=== PATIENT | female | born 1980 | race Caucasian/White ===

== ENCOUNTER 2018-11-14 18:03 | Emergency (ER) | payer OTHER ==
[2018-11-14] MEDS ORDERED: ONDANSETRON HCL INJ/PF 4 MG/2 ML SDV IV ONE (21:15)
[2018-11-14] MEDS ORDERED: NORMAL SALINE 500 ML IV ONE (21:15)
[2018-11-14] MEDS ORDERED: KETOROLAC TROMETHAMINE INJ/PF 30 MG/1 ML SDV IV ONE ×2 (21:15→23:17)
--- NOTE | 2018-11-14 21:18 | ER Document Report ---
ED Medical Screen (RME) - General Chief Complaint: Headache Stated Complaint: HEADACHE Time Seen by Provider: 11/14/18 21:14 Primary Care Provider: MIKE COFFEY DO [Primary Care Provider] - Follow up as needed Notes: 37-year-old female with chief complaint of headache for the past 3 days. Reports throbbing migraine on the right side of her head. Long history of migraines, tried to treat at home using diclofenac, Phenergan, naproxen, Benadryl over the past couple of days. Denies head injury or fever, reports this is consistent with typical migraine except it won't go away. TRAVEL OUTSIDE OF THE [place] IN LAST 30 DAYS: No - Related Data Allergies/Adverse Reactions: prochlorperazine edisylate [From Compazine] Allergy (Severe, Verified 11/14/18 18:04) Anaphylaxis prochlorperazine maleate [From Compazine] Allergy (Severe, Verified 11/14/18 18:04) Anaphylaxis metoclopramide HCl [From Reglan] Allergy (Verified 11/14/18 18:04) rizatriptan benzoate [From Maxalt] Allergy (Verified 11/14/18 18:04) sumatriptan [From Imitrex] Allergy (Verified 11/14/18 18:04) sumatriptan succinate [From Imitrex] Allergy (Verified 11/14/18 18:04) eletriptan HBr [From Relpax] Adverse Reaction (Verified 11/14/18 18:04) triptins Allergy (Severe, Uncoded 11/14/18 18:04) Anaphylaxis Past Medical History - Social History Family history: DM, Hypertension, Malignancy Neurological Medical History: Reports: Hx Migraine, Hx Seizures Psychiatric Medical History: Reports: Hx Depression Past Surgical History: Reports: Hx Gynecologic Surgery - ablation - Immunizations Immunizations up to date: Yes Hx Diphtheria, Pertussis, Tetanus Vaccination: Yes Physical Exam - Vital signs Vitals: Temp Pulse Resp BP Pulse Ox 98.4 F 91 16 103/63 96 11/14/18 18:07 11/14/18 18:07 11/14/18 18:07 11/14/18 18:07 11/14/18 18:07 - Neurological Orientation: AAOx4 Ana Coma Scale Eye Opening: Spontaneous Witt Coma Scale Verbal: Oriented Ana Coma Scale Motor: Obeys Commands Ana Coma Scale Total: 15 Speech: Normal Course - Vital Signs Vital signs: Temp Pulse Resp BP Pulse Ox 98.4 F 91 16 103/63 96 11/14/18 18:07 11/14/18 18:07 11/14/18 18:07 11/14/18 18:07 11/14/18 18:07 Doctor's Discharge - Discharge Referrals: MIKE COFFEY DO [Primary Care Provider] - Follow up as needed
[2018-11-14] MEDS ORDERED: NORMAL SALINE 1000 ML 1,000 ML IV ONE (23:18)
[2018-11-14] MEDS ORDERED: DIHYDROERGOTAMINE MESYLATE IM ONE (23:21)
[2018-11-15] MEDS ORDERED: OXYCODONE-ACETAMINOPHEN 5-325 MG TABLET PO ONE (01:29)
--- NOTE | 2018-11-15 02:03 | ER Document Report ---
ED General - General Chief Complaint: Headache Stated Complaint: HEADACHE Time Seen by Provider: 11/14/18 21:14 Primary Care Provider: MIKE COFFEY DO [ASSOCIATE] - Follow up as needed TRAVEL OUTSIDE OF THE [place] IN LAST 30 DAYS: No - HPI Notes: Patient is a 38-year-old female with a history of migraine headaches who presents to the emergency department for evaluation of a migraine headache. It hurts over by her right religious. It is throbbing in nature. It is not the worst headache of her life, but she has not gotten any relief with her normal medications. It is worsened by bright light and loud noises. Nothing seems to improve it. She denies any visual changes. No difficulty seeing, speaking, swallowing. Moving arms and legs without difficulty. She states she receives Botox injections, actually received some today for her headache without significant relief. - Related Data Allergies/Adverse Reactions: prochlorperazine edisylate [From Compazine] Allergy (Severe, Verified 11/14/18 18:04) Anaphylaxis prochlorperazine maleate [From Compazine] Allergy (Severe, Verified 11/14/18 18:04) Anaphylaxis metoclopramide HCl [From Reglan] Allergy (Verified 11/14/18 18:04) rizatriptan benzoate [From Maxalt] Allergy (Verified 11/14/18 18:04) sumatriptan [From Imitrex] Allergy (Verified 11/14/18 18:04) sumatriptan succinate [From Imitrex] Allergy (Verified 11/14/18 18:04) eletriptan HBr [From Relpax] Adverse Reaction (Verified 11/14/18 18:04) triptins Allergy (Severe, Uncoded 11/14/18 18:04) Anaphylaxis Past Medical History - General Information source: Patient - Social History Smoking Status: Current Every Day Smoker Chew tobacco use (# tins/day): No Frequency of alcohol use: None Drug Abuse: None Family History: Reviewed & Not Pertinent Patient has suicidal ideation: No Patient has homicidal ideation: No Neurological Medical History: Reports: Hx Migraine, Hx Seizures Renal/ Medical History: Denies: Hx Peritoneal Dialysis Psychiatric Medical History: Reports: Hx Depression Past Surgical History: Reports: Hx Gynecologic Surgery - ablation - Immunizations Immunizations up to date: Yes Hx Diphtheria, Pertussis, Tetanus Vaccination: Yes Review of Systems - Review of Systems Constitutional: No symptoms reported EENT: No symptoms reported Cardiovascular: No symptoms reported Respiratory: No symptoms reported Gastrointestinal: No symptoms reported Genitourinary: No symptoms reported Musculoskeletal: No symptoms reported Skin: No symptoms reported Neurological/Psychological: No symptoms reported Physical Exam - Vital signs Vitals: Temp Pulse Resp BP Pulse Ox 98.4 F 91 16 103/63 96 11/14/18 18:07 11/14/18 18:07 11/14/18 18:07 11/14/18 18:07 11/14/18 18:07 - Notes Notes: Vital signs reviewed, please refer to chart. Head is normocephalic, atraumatic. Pupils equal round, reactive to light. Neck is supple without meningismus. Heart is regular rate and rhythm. Lungs are clear to auscultation bilaterally. Abdomen is soft, nontender, normoactive bowel sounds throughout. Extremities without cyanosis, clubbing. Posterior calves are nontender. Peripheral pulses are equal. Skin is warm and dry. Patient is awake, alert, oriented x3. Cranial nerves II - XII are grossly intact without focal neurological deficits. Strength is plus 5 out of 5 bilateral lower extremities. Sensation is intact. Reflexes symmetrical. Intact [id number], rapid alternating movements, [id number]. Course - Re-evaluation Re-evalutation: 11/15/18 02:00 Patient presents emergency department for evaluation of a migraine headache. She has no red flags for arachnoid hemorrhage, meningitis. This is all typical of her normal migraines. She was initially medicated through triage, did not have significant relief. She was further given medications by myself, stated she had some relief. At one point she told her nurse "just give me some pain medication so I can go home." She was medicated here with 1 Percocet. She already takes Topamax at home for her daily migraine prophylaxis. She is to follow-up with primary care, return to the ED with worsening or new concerning symptoms of any sort. - Vital Signs Vital signs: Temp Pulse Resp BP Pulse Ox 98.4 F 91 16 103/63 96 11/14/18 18:07 11/14/18 18:07 11/14/18 18:07 11/14/18 18:07 11/14/18 18:07 Discharge - Discharge Clinical Impression: Migraine headache without aura Qualifiers: Status migrainosus presence: without status migrainosus Intractability: not intractable Qualified Code(s): G43.009 - Migraine without aura, not intractable, without status migrainosus Condition: Stable Disposition: HOME, SELF-CARE Instructions: Headache ([facility]), Toradol Injection ([facility]) Additional Instructions: To your home medications as prescribed. Rest, stay well-hydrated. Follow-up with your doctor next week. Return to the emergency department with worsening or new concerning symptoms. Referrals: MIKE COFFEY DO [ASSOCIATE] - Follow up as needed
[2018-11-15 03:31] VITALS: BP 106/62
== END 2018-11-15 03:20 | disposition home or self-care (01) ==
LOC: ER 18:03
DX: G43.909 Migraine, unspecified, not intractable, without status migrainosus (principal); Z79.899 Other long term (current) drug therapy; F17.200 Nicotine dependence, unspecified, uncomplicated; Z87.892 Personal history of anaphylaxis; Z88.8 Allergy status to other drugs, medicaments and biological substances; Z88.6 Allergy status to analgesic agent
CPT/HCPCS: 96376; 99284; 96372; 96361; 96374; J1110; J1885; J2405; J7030; J7040

== ENCOUNTER 2019-01-23 10:58 | Emergency (ER) | payer OTHER ==
[2019-01-23] MEDS ORDERED: ONDANSETRON 4 MG TAB.RAPDIS PO ONE (11:21)
--- NOTE | 2019-01-23 11:23 | ER Document Report ---
ED Medical Screen (RME) - General Chief Complaint: Headache Stated Complaint: HEADACHE Time Seen by Provider: 01/23/19 11:21 Primary Care Provider: GURMEET COREA DO [Primary Care Provider] - Follow up as needed Mode of Arrival: Ambulatory Information source: Patient Notes: 38-year-old female presented to ED for complaint of migraine. She states she gets these migraines that she usually has to have Nubain Demerol or morphine to get rid of it. She went to the urgent care yesterday and they gave her Phenergan and Toradol and it did not help. She states she is allergic to Compazine and cannot use that cocktail. She is alert oriented respirations regular and unlabored speaking in full sentences she does walk with a even steady gait. Will give her some Phenergan until she is seen by her provider. I have greeted and performed a rapid initial assessment of this patient. A comprehensive ED assessment and evaluation of the patient, analysis of test res ults and completion of medical decision making process will be conducted by an additional ED providers. TRAVEL OUTSIDE OF THE [place] IN LAST 30 DAYS: No - Related Data Allergies/Adverse Reactions: prochlorperazine edisylate [From Compazine] Allergy (Severe, Verified 01/23/19 11:00) Anaphylaxis prochlorperazine maleate [From Compazine] Allergy (Severe, Verified 01/23/19 11:00) Anaphylaxis metoclopramide HCl [From Reglan] Allergy (Verified 01/23/19 11:00) rizatriptan benzoate [From Maxalt] Allergy (Verified 01/23/19 11:00) sumatriptan [From Imitrex] Allergy (Verified 01/23/19 11:00) sumatriptan succinate [From Imitrex] Allergy (Verified 01/23/19 11:00) eletriptan HBr [From Relpax] Adverse Reaction (Verified 01/23/19 11:00) triptins Allergy (Severe, Uncoded 01/23/19 11:00) Anaphylaxis Past Medical History - Social History Family history: DM, Hypertension, Malignancy Neurological Medical History: Reports: Hx Migraine, Hx Seizures Renal/ Medical History: Denies: Hx Peritoneal Dialysis Psychiatric Medical History: Reports: Hx Depression Past Surgical History: Reports: Hx Gynecologic Surgery - ablation - Immunizations Immunizations up to date: Yes Hx Diphtheria, Pertussis, Tetanus Vaccination: Yes Physical Exam - Vital signs Vitals: Temp Pulse Resp BP Pulse Ox 98.2 F 91 18 108/64 96 01/23/19 11:00 01/23/19 11:00 01/23/19 11:00 01/23/19 11:00 01/23/19 11:00 Course - Vital Signs Vital signs: Temp Pulse Resp BP Pulse Ox 98.2 F 91 18 108/64 96 01/23/19 11:00 01/23/19 11:00 01/23/19 11:00 01/23/19 11:00 01/23/19 11:00 Doctor's Discharge - Discharge Referrals: GURMEET COREA, [Primary Care Provider] - Follow up as needed
[2019-01-23] MEDS ORDERED: NALBUPHINE HCL INJ 10 MG/1 ML AMPULE INJ ONE (12:25)
[2019-01-23] MEDS ORDERED: PROMETHAZINE HCL INJ 25 MG/1 ML VIAL IV ONE (12:25)
[2019-01-23] MEDS ORDERED: NORMAL SALINE 1000 ML 1,000 ML IV ONE (12:26)
[2019-01-23] MEDS ORDERED: ONDANSETRON ODT 4 MG TAB (6 TAB/ER DISP) PO PRN (14:10)
[2019-01-23 14:14] VITALS: BP 104/64
--- NOTE | 2019-01-26 21:23 | ER Document Report ---
Entered by COLLINS ALVARADO SCRIBE 01/23/19 1227 Acting as scribe for:OJ COOPER DO ED Headache - General Chief Complaint: Headache Stated Complaint: HEADACHE Time Seen by Provider: 01/23/19 11:21 Primary Care Provider: GURMEET COREA DO [NO LOCAL MD] - Follow up in 3-5 days Mode of Arrival: Ambulatory Notes: 38 year old female that presents to the emergency department today with complaints of a migraine headache. Patient reports a history of chronic migraines and states that her headache today is identical to her usual migraine headaches. Patient denies fevers or weakness. TRAVEL OUTSIDE OF THE [place] IN LAST 30 DAYS: No - Related Data Allergies/Adverse Reactions: prochlorperazine edisylate [From Compazine] Allergy (Severe, Verified 01/23/19 11:00) Anaphylaxis prochlorperazine maleate [From Compazine] Allergy (Severe, Verified 01/23/19 11:00) Anaphylaxis metoclopramide HCl [From Reglan] Allergy (Verified 01/23/19 11:00) rizatriptan benzoate [From Maxalt] Allergy (Verified 01/23/19 11:00) sumatriptan [From Imitrex] Allergy (Verified 01/23/19 11:00) sumatriptan succinate [From Imitrex] Allergy (Verified 01/23/19 11:00) eletriptan HBr [From Relpax] Adverse Reaction (Verified 01/23/19 11:00) triptins Allergy (Severe, Uncoded 01/23/19 11:00) Anaphylaxis Past Medical History - General Information source: Patient - Social History Smoking Status: Unknown if Ever Smoked Frequency of alcohol use: None Drug Abuse: None Lives with: Family Family History: Reviewed & Not Pertinent Patient has suicidal ideation: No Patient has homicidal ideation: No Neurological Medical History: Reports: Hx Migraine, Hx Seizures Psychiatric Medical History: Reports: Hx Depression Past Surgical History: Reports: Hx Gynecologic Surgery - ablation - Immunizations Immunizations up to date: Yes Hx Diphtheria, Pertussis, Tetanus Vaccination: Yes Review of Systems - Review of Systems Constitutional: denies: Fever, Weakness EENT: No symptoms reported Cardiovascular: No symptoms reported Respiratory: No symptoms reported Gastrointestinal: No symptoms reported Genitourinary: No symptoms reported Female Genitourinary: No symptoms reported Musculoskeletal: No symptoms reported Skin: No symptoms reported Hematologic/Lymphatic: No symptoms reported Neurological/Psychological: See HPI, Headaches -: Yes All other systems reviewed and negative Physical Exam - Vital signs Vitals: Temp Pulse Resp BP Pulse Ox 98.2 F 91 18 108/64 96 01/23/19 11:00 01/23/19 11:00 01/23/19 11:00 01/23/19 11:00 01/23/19 11:00 Interpretation: Normal - General General appearance: Alert In distress: None - appears uncomfortable - HEENT Head: Normocephalic, Atraumatic Eyes: Normal Pupils: PERRL - Respiratory Respiratory status: No respiratory distress Chest status: Nontender Breath sounds: Normal Chest palpation: Normal - Cardiovascular Rhythm: Regular Heart sounds: Normal auscultation Murmur: No - Abdominal Inspection: Normal Distension: No distension Bowel sounds: Normal Tenderness: Nontender Organomegaly: No organomegaly - Back Back: Normal, Nontender - Extremities General upper extremity: Normal inspection, Nontender, Normal color, Normal ROM, Normal temperature General lower extremity: Normal inspection, Nontender, Normal color, Normal ROM, Normal temperature, Normal weight bearing. No: Brenden's sign - Neurological Neuro grossly intact: Yes Cognition: Normal Orientation: AAOx4 [place] Coma Scale Eye Opening: Spontaneous Ana Coma Scale Verbal: Oriented [place] Coma Scale Motor: Obeys Commands [place] Coma Scale Total: 15 Speech: Normal Motor strength normal: LUE, RUE, LLE, RLE Sensory: Normal - Psychological Associated symptoms: Normal affect, Normal mood - Skin Skin Temperature: Warm Skin Moisture: Dry Skin Color: Normal Course - Re-evaluation Re-evalutation: Patient is a 38-year-old female with a history of migraines who comes in complaining of a headache similar to her migraines in the past. Patient has no neurologic deficits. She has photophobia. No fever. Patient is nauseated but no other symptoms or concerns. Receive Zofran at triage which states helps the nausea but not her headache. Patient states that she has been given Nubain, morphine, and Dilaudid in the past for her headaches. She was given Phenergan as requested and Nubain here with significant improvement. She will be given a 3-day supply of Fioricet from the hospital pharmacy. No evidence for imaging at this time. No neurovascular deficits. Feels better would like to go home. Stable for discharge. It is recommended that she follow-up with a primary care doctor and probably neurologist regarding her chronic migraine headaches. - Vital Signs Vital signs: Temp Pulse Resp BP Pulse Ox 97.9 F 61 16 104/64 97 01/23/19 14:13 01/23/19 14:13 01/23/19 14:13 01/23/19 14:13 01/23/19 14:13 Discharge - Discharge Clinical Impression: Headache Qualifiers: Headache type: unspecified Headache chronicity pattern: acute headache Intractability: not intractable Qualified Code(s): R51 - Headache Condition: Stable Disposition: HOME, SELF-CARE Instructions: Migraine Headache ([facility]) Prescriptions: Butalb/Acetaminophen/Caffeine [Fioricet (50-325-40 mg) Tablet] 1 tab PO Q8HP PRN #9 tab PRN Reason: Referrals: GURMEET COREA DO [NO LOCAL MD] - Follow up in 3-5 days I personally performed the services described in the documentation, reviewed and edited the documentation which was dictated to the scribe in my presence, and it accurately records my words and actions.
== END 2019-01-23 15:00 | disposition home or self-care (01) ==
LOC: ER 10:58
DX: R51 Headache (principal); H53.149 Visual discomfort, unspecified; R11.0 Nausea
CPT/HCPCS: 99284; 96372; 96361; 96374; S0119; J2300; J2550; J7030

== ENCOUNTER 2019-01-25 12:30 | Emergency (ER) | payer OTHER ==
[2019-01-25] MEDS ORDERED: ONDANSETRON HCL INJ/PF 4 MG/2 ML SDV IV ONE ×2 (14:29→18:10)
--- NOTE | 2019-01-25 14:29 | ER Document Report ---
ED Medical Screen (RME) - General Chief Complaint: Headache Stated Complaint: HEADACHES Time Seen by Provider: 01/25/19 14:25 Primary Care Provider: IRAIDA AMIN PA [Primary Care Provider] - Follow up as needed Mode of Arrival: Ambulatory Information source: Patient Notes: 38-year-old female presented to ED for complaint of a migraine. She states she was in the emergency room on Sunday for the migraine they gave her Fioricet she took one last night and one this morning and is not able to get rid of this headache. She states she is allergic to Reglan and Compazine. Patient is alert oriented respirations regular and unlabored speaking in full sentences walks with eating gait. She states last time she was here she got some Zofran and Nubain and a headache was better but that was just a couple days ago and now will go away. She does have a history of migraines. He states he just started seeing Dr. Valerio. I have greeted and performed a rapid initial assessment of this patient. A comprehensive ED assessment and evaluation of the patient, analysis of test results and completion of medical decision making process will be conducted by an additional ED providers. TRAVEL OUTSIDE OF THE [place] IN LAST 30 DAYS: No - Related Data Allergies/Adverse Reactions: prochlorperazine edisylate [From Compazine] Allergy (Severe, Verified 01/23/19 11:00) Anaphylaxis prochlorperazine maleate [From Compazine] Allergy (Severe, Verified 01/23/19 11:00) Anaphylaxis metoclopramide HCl [From Reglan] Allergy (Verified 01/23/19 11:00) rizatriptan benzoate [From Maxalt] Allergy (Verified 01/23/19 11:00) sumatriptan [From Imitrex] Allergy (Verified 01/23/19 11:00) sumatriptan succinate [From Imitrex] Allergy (Verified 01/23/19 11:00) eletriptan HBr [From Relpax] Adverse Reaction (Verified 01/23/19 11:00) triptins Allergy (Severe, Uncoded 01/23/19 11:00) Anaphylaxis Past Medical History - Social History Frequency of alcohol use: None Drug Abuse: None Family history: DM, Hypertension, Malignancy Neurological Medical History: Reports: Hx Migraine, Hx Seizures Renal/ Medical History: Denies: Hx Peritoneal Dialysis Psychiatric Medical History: Reports: Hx Depression Past Surgical History: Reports: Hx Gynecologic Surgery - ablation - Immunizations Immunizations up to date: Yes Hx Diphtheria, Pertussis, Tetanus Vaccination: Yes Physical Exam - Vital signs Vitals: Temp Pulse Resp BP Pulse Ox 98.4 F 92 18 102/61 96 01/25/19 12:35 01/25/19 12:35 01/25/19 12:35 01/25/19 12:35 01/25/19 12:35 Course - Vital Signs Vital signs: Temp Pulse Resp BP Pulse Ox 98.4 F 92 18 102/61 96 01/25/19 12:35 01/25/19 12:35 01/25/19 12:35 01/25/19 12:35 01/25/19 12:35 Doctor's Discharge - Discharge Referrals: IRAIDA AMIN PA [Primary Care Provider] - Follow up as needed
[2019-01-25] MEDS ORDERED: KETOROLAC TROMETHAMINE INJ/PF 30 MG/1 ML SDV IV ONE (14:30)
[2019-01-25] MEDS ORDERED: NORMAL SALINE 500 ML IV ONE (14:30)
[2019-01-25] MEDS ORDERED: MORPHINE SULFATE 10 MG/ML INJ IV ONE (20:23)
[2019-01-25] MEDS ORDERED: RINGERS SOLUTION,LACTATED 1,000 ML IV ONE (20:23)
[2019-01-25] MEDS ORDERED: DEXAMETHASONE 4 MG TABLET PO ONE (20:23)
[2019-01-25] MEDS ORDERED: PROMETHAZINE HCL INJ 25 MG/1 ML VIAL IV ONE (20:23)
[2019-01-25] MEDS ORDERED: DIPHENHYDRAMINE HCL 50 MG/ML VIAL IV ONE (21:21)
--- NOTE | 2019-01-25 21:22 | ER Document Report ---
ED General - General Chief Complaint: Headache Stated Complaint: HEADACHES Time Seen by Provider: 01/25/19 14:25 Primary Care Provider: IRAIDA AMIN PA [NO LOCAL MD] - Follow up in 3-5 days Mode of Arrival: Ambulatory Information source: Patient, [facility] Records Notes: 38-year-old female with a history of migraines presents with complaint of migraine that started 4 days prior to arrival. Headache is located on the left side described as a throbbing pain that has not been relieved with Fioricet which she was prescribed on Sunday while seen in the emergency department for similar symptoms. She does report that this headache is similar to her previous migraines. She denies any head injury, maximum onset of pain upon starting, fever, weakness. TRAVEL OUTSIDE OF THE [place] IN LAST 30 DAYS: No - HPI Onset: Other Onset/Duration: Gradual, Persistent Quality of pain: Throbbing Severity: Moderate Pain Level: 2 Associated symptoms: Headache, Nausea, Vomiting. denies: Chest pain, Nonproductive cough, Diarrhea, Fever, Shortness of breath Exacerbated by: Denies Relieved by: Denies Similar symptoms previously: Yes Recently seen / treated by doctor: Yes - Related Data Allergies/Adverse Reactions: prochlorperazine edisylate [From Compazine] Allergy (Severe, Verified 01/23/19 11:00) Anaphylaxis prochlorperazine maleate [From Compazine] Allergy (Severe, Verified 01/23/19 11:00) Anaphylaxis metoclopramide HCl [From Reglan] Allergy (Verified 01/23/19 11:00) rizatriptan benzoate [From Maxalt] Allergy (Verified 01/23/19 11:00) sumatriptan [From Imitrex] Allergy (Verified 01/23/19 11:00) sumatriptan succinate [From Imitrex] Allergy (Verified 01/23/19 11:00) eletriptan HBr [From Relpax] Adverse Reaction (Verified 01/23/19 11:00) triptins Allergy (Severe, Uncoded 01/23/19 11:00) Anaphylaxis Past Medical History - General Information source: Patient - Social History Smoking Status: Current Every Day Smoker Frequency of alcohol use: None Drug Abuse: None Lives with: Family Family History: Reviewed & Not Pertinent Patient has suicidal ideation: No Patient has homicidal ideation: No Neurological Medical History: Reports: Hx Migraine, Hx Seizures Renal/ Medical History: Denies: Hx Peritoneal Dialysis Psychiatric Medical History: Reports: Hx Depression - &anxiety Past Surgical History: Reports: Hx Gynecologic Surgery - ablation - Immunizations Immunizations up to date: Yes Hx Diphtheria, Pertussis, Tetanus Vaccination: Yes Review of Systems - Review of Systems Notes: REVIEW OF SYSTEMS: CONSTITUTIONAL : Denies fever, chills, or sweats. Denies recent illness. Denies weight loss, recent hospitalizations. EENT: Denies visual changes, eye pain. Denies sore throat, oral lesions, difficulty swallowing. CARDIOVASCULAR: Denies chest pain. Denies palpitations. Denies lower extremity edema. RESPIRATORY: Denies cough. Denies shortness of breath, wheezing. GASTROINTESTINAL: Denies abdominal pain or distention. Denies diarrhea. Denies blood in vomitus, stools, or per rectum. Denies black, tarry stools. Denies constipation. GENITOURINARY: Denies difficulty urinating, painful urination, frequency, blood in urine, or vaginal discharge. MUSCULOSKELETAL: Denies back or neck pain or stiffness. Denies joint pain or swelling. SKIN: Denies rash, lesions or sores. HEMATOLOGIC : Denies easy bruising or bleeding. LYMPHATIC: Denies swollen glands. NEUROLOGICAL: Denies confusion or altered mental status. Denies loss of consciousness. Denies dizziness or lightheadedness. Denies weakness or paralysi s. Denies problems difficulty with ambulation, slurred speech. Denies sensory loss, numbness, or tingling. Denies seizures. PSYCHIATRIC: Denies anxiety or stress. Denies depression, suicidal ideation, or homicidal ideation. Denies visual or auditory hallucinations. Physical Exam - Vital signs Vitals: Temp Pulse Resp BP Pulse Ox 98.4 F 92 18 102/61 96 01/25/19 12:35 01/25/19 12:35 01/25/19 12:35 01/25/19 12:35 01/25/19 12:35 - Notes Notes: PHYSICAL EXAMINATION: GENERAL: Well-appearing, well-nourished and in no acute distress. HEAD: Atraumatic, normocephalic. EYES: Pupils equal round and reactive to light, extraocular movements intact, conjunctiva are normal. ENT: Nares patent, oropharynx clear without exudates. Moist mucous membranes. NECK: Normal range of motion, supple without lymphadenopathy LUNGS: Breath sounds clear to auscultation bilaterally and equal. No wheezes rales or rhonchi. HEART: Regular rate and rhythm without murmurs ABDOMEN: Soft, nontender, nondistended abdomen. No guarding, no rebound. No masses appreciated. Female : deferred Musculoskeletal: Normal range of motion, no pitting or edema. No cyanosis. NEUROLOGICAL: Mental status; alert and oriented x3. Cranial nerves II through XII intact. Sensation intact to sharp/dull differentiation in all extremities. Motor; normal tone. No abnormal movements appreciated. No pronator drift. Strength tested and 5/5 in bilateral wrist flexion/extension, elbow flexion/extension, shoulder abduction, straight leg raise, knee flexion/extension, ankle dorsiflexion/plantar flexion. Patient ambulates with a steady gait. Coordination; no ataxia. Finger to nose and heel to palm testing intact bilaterally. Reflexes; brachial radialis, biceps, and patellar reflexes within normal limits and symmetric bilaterally. Babinski with downgoing toes bilaterally. PSYCH: Normal mood, normal affect. SKIN: Warm, Dry, normal turgor, no rashes or lesions noted. Course - Re-evaluation Re-evalutation: 01/25/19 21:21 Presentation of a headache that appears to be most consistent with tension versus migrainous type headache. Headache was not maximal in onset, patient has no focal neurologic deficits, no nuchal rigidity, vital signs within normal limits, no papilledema, and patient is overall well in appearance. Based on clinical history and examination I do not suspect an acute subarachnoid hem orrhage, dural venous sinus thrombosis, acute meningitis, or intercranial mass. Given my low clinical suspicion for any acute life-threatening etiology, I do not feel advanced neuro imaging or laboratory testing is indicated at this time. Will proceed with headache cocktail and reassess. 01/25/19 21:43 Patient reports significant improvement in her headache. States she is ready for discharge home. Patient was evaluated and treated as appropriate for the patient's presenting symptoms and complaint, with consideration of any critical or life threatening conditions that may be associated with their obtained history and exam as noted above. All results were discussed with patient and her who is at the bedside. Patient provided the opportunity to ask questions, and express concerns . Patient was educated on treatments based on their presumed diagnosis as noted above. At this time we will discharge the patient with return precautions and follow-up recommendations. Verbal discharge instructions given a the bedside. Medication warnings reviewed. Patient is in agreement with this plan and has verbalized understanding of return precautions. After careful consideration I feel that that patient can be safely discharged from the emergency department, they were advised to followup with a primary care physician in 2-3 days. Dictation on this chart was performed using voice recognition software and may result in unintended grammatical, spelling, syntax or errors. - Vital Signs Vital signs: Temp Pulse Resp BP Pulse Ox 98.4 F 92 18 102/61 96 01/25/19 12:35 01/25/19 12:35 01/25/19 12:35 01/25/19 12:35 01/25/19 12:35 Discharge - Discharge Clinical Impression: Headache Qualifiers: Headache type: unspecified Headache chronicity pattern: unspecified pattern Intractability: not intractable Qualified Code(s): R51 - Headache Condition: Good Disposition: HOME, SELF-CARE Instructions: Headache ([facility]) Additional Instructions: You have been seen in the Emergency Department (ED) for a headache. Please use Tylenol (acetaminophen) or Motrin (ibuprofen) as needed for symptoms, but only as written on the box. As we have discussed, please follow up with your primary care doctor as soon as possible regarding today's ED visit and your headache symptoms. Call your doctor or return to the ED if you have a worsening headache, sudden and severe headache, confusion, slurred speech, facial droop, weakness or numbness in any arm or leg, extreme fatigue, or other symptoms that concern you. Referrals: IRAIDA AMIN PA [NO LOCAL MD] - Follow up in 3-5 days
[2019-01-25 21:46] VITALS: BP 126/75
== END 2019-01-25 22:00 | disposition home or self-care (01) ==
LOC: ER 12:30
DX: R51 Headache (principal); R11.2 Nausea with vomiting, unspecified; F17.200 Nicotine dependence, unspecified, uncomplicated; Z87.892 Personal history of anaphylaxis; Z88.8 Allergy status to other drugs, medicaments and biological substances; Z88.6 Allergy status to analgesic agent
CPT/HCPCS: 96376; 99283; 96361; 96374; 96375; J1200; J1885; J2270; J2550; J2405; J7040; J7120

== ENCOUNTER 2019-02-10 10:37 | Emergency (ER) | payer OTHER ==
[2019-02-10] MEDS ORDERED: METHYLPREDNISOLONE INJ 125 MG/2 ML SDV IV ONE (11:03)
[2019-02-10] MEDS ORDERED: KETOROLAC TROMETHAMINE INJ/PF 30 MG/1 ML SDV IV ONE (11:03)
[2019-02-10] MEDS ORDERED: DIPHENHYDRAMINE HCL 50 MG/ML VIAL IV ONE (11:03)
--- NOTE | 2019-02-10 11:09 | ER Document Report ---
ED General - General Stated Complaint: HEADACHE Time Seen by Provider: 02/10/19 11:01 Primary Care Provider: DANI ZUNIGA MD [NO LOCAL MD] - Follow up as needed TRAVEL OUTSIDE OF THE [place] IN LAST 30 DAYS: No - HPI Notes: Patient is a 38-year-old female with a history of migraines who presents complaining of migraine headache for the past 3 days on the left side. Patient states that she has migraines fairly often and does have a neurologist that she sees regularly. Patient has been here a couple times this month for migraines as well. Patient states that this is not the worst headache of her life and did not reach maximal intensity at initial onset. No injury. Patient states that the pain does not radiate. She does have associated light sensitivity as well as nausea. Patient states that the symptoms are normal for her with these headaches. No recent illness. Denies any fever, head injury, neck pain, changes in vision/speech/mentation/hearing, URI, sore throat, chest pain, palpit ations, syncope, cough, shortness of breath, wheeze, dyspnea, abdominal pain, nausea/vomiting/diarrhea, urinary retention, dysuria, hematuria, loss of control of bowel or bladder, numbness/tingling, saddle anesthesia, muscle paralysis/weakness, or rash. - Related Data Allergies/Adverse Reactions: prochlorperazine edisylate [From Compazine] Allergy (Severe, Verified 01/23/19 11:00) Anaphylaxis prochlorperazine maleate [From Compazine] Allergy (Severe, Verified 01/23/19 11:00) Anaphylaxis metoclopramide HCl [From Reglan] Allergy (Verified 01/23/19 11:00) rizatriptan benzoate [From Maxalt] Allergy (Verified 01/23/19 11:00) sumatriptan [From Imitrex] Allergy (Verified 01/23/19 11:00) sumatriptan succinate [From Imitrex] Allergy (Verified 01/23/19 11:00) eletriptan HBr [From Relpax] Adverse Reaction (Verified 01/23/19 11:00) triptins Allergy (Severe, Uncoded 01/23/19 11:00) Anaphylaxis Past Medical History - Social History Smoking Status: Unknown if Ever Smoked Family History: Reviewed & Not Pertinent Neurological Medical History: Reports: Hx Migraine, Hx Seizures Renal/ Medical History: Denies: Hx Peritoneal Dialysis Psychiatric Medical History: Reports: Hx Depression - &anxiety Past Surgical History: Reports: Hx Gynecologic Surgery - ablation - Immunizations Immunizations up to date: Yes Hx Diphtheria, Pertussis, Tetanus Vaccination: Yes Review of Systems - Review of Systems -: Yes All other systems reviewed and negative Physical Exam - Vital signs Vitals: Temp Pulse Resp BP Pulse Ox 97.9 F 69 15 105/71 98 02/10/19 10:44 02/10/19 10:44 02/10/19 10:44 02/10/19 10:44 02/10/19 10:44 - Notes Notes: PHYSICAL EXAMINATION: GENERAL: Well-appearing, well-nourished and in no acute distress. A&Ox4. Answers questions appropriately. HEAD: Atraumatic, normocephalic. Non-tender. EYES: Pupils equal round and reactive to light, extraocular movements intact, sclera anicteric, conjunctiva are normal. No nystagmus. ENT: EAC clear b/l. TM's intact b/l without erythema, fluid, or perforation. Nares patent and without discharge. oropharynx clear without exudates. No tonsilar hypertrophy or erythema. Moist mucous membranes. No sinus tenderness. NECK: Normal range of motion, supple without lymphadenopathy. No rigidity/meningismus. No midline tenderness. LUNGS: Breath sounds clear to auscultation bilaterally and equal. No wheezes rales or rhonchi. HEART: Regular rate and rhythm without murmurs, rubs, gallops. ABDOMEN: Soft, nontender, nondistended abdomen. No guarding, no rebound. Normal bowel sounds present. No CVA tenderness bilaterally. Musculoskeletal: Ext b/l: FROM to passive/active. Strength 5+/5. No deficits noted. No bony tenderness of extremities. Extremities: No cyanosis, clubbing, or edema b/l. Peripheral pulses 2+. Capillary refill less than 2 seconds. NEUROLOGICAL: NIH 0. GCS 15. Cranial nerves grossly intact. Normal speech, normal gait. Normal sensory, motor exams. Reflexes 2+ b/l. EVETTE's negative. Pronator drift negative. Heel/palm, finger/nose wnl. Romberg neg. PSYCH: Normal mood, normal affect. SKIN: Warm, Dry, normal turgor, no rashes or lesions noted. Course - Re-evaluation Re-evalutation: 02/10/19 11:50 Patient is an afebrile, well-hydrated, 38-year-old female who presents to the ED with a headache, suspect migraine versus tension. Vitals are acceptable without any significant tachycardia, tachypnea, or hypoxia. PE is otherwise unremarkable for any focal neurological deficits. NIH 0, GCS 15, cranial nerves grossly intact. Patient has had headaches like this in the past recently. No labs or imaging warranted at this time based on H&P. Patient was given Toradol, Solu-Medrol, morphine (pt called out requesting same med that was given at last visit), and benadryl which has significantly improved her headache. Patient states that she is feeling much better and would like to go home. She is nontoxic-appearing and is tolerating p.o. without any difficulties. Low suspicion for any acute glaucoma, temporal arteritis, meningitis, intracranial hemorrhage, ischemic stroke, or fracture at this time. Patient is aware that this condition can change from initial presentation and that she needs to monitor symptoms closely for any acute changes. Recheck with your PCM/neurologist in 3-5 days. Return to the ED with any worsening/concerning symptoms otherwise as reviewed in discharge. Patient is in agreement. - Vital Signs Vital signs: Temp Pulse Resp BP Pulse Ox 97.9 F 69 15 105/71 98 02/10/19 10:44 02/10/19 10:44 02/10/19 10:44 02/10/19 10:44 02/10/19 10:44 Discharge - Discharge Clinical Impression: Headache Qualifiers: Headache type: unspecified Headache chronicity pattern: acute headache Intractability: not intractable Qualified Code(s): R51 - Headache Condition: Stable Disposition: HOME, SELF-CARE Instructions: Headache ([facility]) Additional Instructions: Rest, Ice/cool compress Tylenol/ibuprofen as needed Light stretches daily Strength exercises as able Moist heat and massage may help F/u with your PCP in 2-3 days for a recheck Consider consult(s) with Neurology for ongoing/worsening symptoms Return to the ED with any worsening symptoms and/or development of fever, headache, changes in behavior/mentation/vision/speech, chest pain, palpitations, syncope, shortness of breath, trouble breathing, abdominal pain, n/v/d, blood in stool/urine, loss of control of bowel/bladder, urinary retention, muscle weakness/paralysis, saddle anesthesia, numbness/tingling, or other worsening symptoms that are concerning to you. Referrals: DANI ZUNIGA MD [NO LOCAL MD] - Follow up as needed
[2019-02-10] MEDS ORDERED: NORMAL SALINE 250 ML IV ONE (11:31)
[2019-02-10] MEDS ORDERED: MORPHINE SULFATE 10 MG/ML INJ IV ONE (12:05)
[2019-02-10 13:17] VITALS: BP 105/62
== END 2019-02-10 13:19 | disposition home or self-care (01) ==
LOC: ER 10:37
DX: R51 Headache (principal); R11.0 Nausea
CPT/HCPCS: J1200; J2930; J1885; J2270; J7050; 96361; 96374; 96375; 99283

== ENCOUNTER 2019-04-08 14:37 | Emergency (ER) | payer OTHER ==
[2019-04-08] MEDS ORDERED: KETOROLAC TROMETHAMINE INJ/PF 30 MG/1 ML SDV IV ONE (15:03)
[2019-04-08] MEDS ORDERED: PROMETHAZINE HCL INJ 25 MG/1 ML VIAL IV ONE (15:03)
[2019-04-08] MEDS ORDERED: NORMAL SALINE 1000 ML 1,000 ML IV ONE (15:03)
--- NOTE | 2019-04-08 15:06 | ER Document Report ---
ED Medical Screen (RME) - General Chief Complaint: Headache Stated Complaint: HEADACHE Time Seen by Provider: 04/08/19 14:56 Notes: Patient is a 38-year-old female who presents to the emergency department with a chief complaint of a migraine. She states that her migraine started yesterday at 930. Patient states that she took her hydrocodone, Phenergan, and 100 mg of Benadryl this morning, but had little relief. She states that her pain is in her left presybeter[place]. Patient is also on Topamax. She was also started on ajovyy for her migraines. Patient has photophobia and some nausea, but no vomiting. She states that this is typical of her migraines. Exam: PERRLA. Normal strength in upper and lower extremities. I have greeted and performed a rapid initial assessment of this patient. A comprehensive ED assessment and evaluation of the patient, analysis of test results and completion of medical decision making process will be conducted by an additional ED providers. TRAVEL OUTSIDE OF THE [place] IN LAST 30 DAYS: No - Related Data Allergies/Adverse Reactions: prochlorperazine edisylate [From Compazine] Allergy (Severe, Verified 04/08/19 14:51) Anaphylaxis prochlorperazine maleate [From Compazine] Allergy (Severe, Verified 04/08/19 14:51) Anaphylaxis metoclopramide HCl [From Reglan] Allergy (Verified 04/08/19 14:51) rizatriptan benzoate [From Maxalt] Allergy (Verified 04/08/19 14:51) sumatriptan [From Imitrex] Allergy (Verified 04/08/19 14:51) sumatriptan succinate [From Imitrex] Allergy (Verified 04/08/19 14:51) eletriptan HBr [From Relpax] Adverse Reaction (Verified 04/08/19 14:51) triptins Allergy (Severe, Uncoded 04/08/19 14:51) Anaphylaxis Past Medical History - Social History Chew tobacco use (# tins/day): No Frequency of alcohol use: None Drug Abuse: None Family history: DM, Hypertension, Malignancy Neurological Medical History: Reports: Hx Migraine, Hx Seizures Renal/ Medical History: Denies: Hx Peritoneal Dialysis Psychiatric Medical History: Reports: Hx Depression - &anxiety Past Surgical History: Reports: Hx Gynecologic Surgery - ablation - Immunizations Immunizations up to date: Yes Hx Diphtheria, Pertussis, Tetanus Vaccination: Yes Physical Exam - Vital signs Vitals: Temp Pulse Resp BP Pulse Ox 98 F 75 18 118/66 100 04/08/19 14:44 04/08/19 14:44 04/08/19 14:44 04/08/19 14:44 04/08/19 14:44 Course - Vital Signs Vital signs: Temp Pulse Resp BP Pulse Ox 98 F 75 18 118/66 100 04/08/19 14:44 04/08/19 14:44 04/08/19 14:44 04/08/19 14:44 04/08/19 14:44
[2019-04-08 15:23] LABS: ABSOLUTE EOSINOPHILS # (AUTO) 0.1 10^3/uL (0.0-0.6); ABSOLUTE MONOCYTES (AUTO) 0.3 10^3/uL (0.1-1.4); HEMOGLOBIN 14.1 g/dL (12.0-15.5); TOTAL CELLS COUNTED % (AUTO) 100 %
[2019-04-08 15:28] LABS: APPEARANCE,URINE CLEAR; BILIRUBIN,URINE NEGATIVE (NEGATIVE); COLOR,URINE YELLOW; GLUCOSE, URINE NEGATIVE (NEGATIVE); KETONES,URINE NEGATIVE (NEGATIVE); LEUKOCYTE ESTERASE,URINE NEGATIVE (NEGATIVE); NITRITE,URINE NEGATIVE (NEGATIVE); PROTEIN,URINE NEGATIVE (NEGATIVE); URINE SPECIFIC GRAVITY 1.014; UROBILINOGEN,URINE NEGATIVE mg/dL (<2.0)
[2019-04-08 15:30] LABS: ABSOLUTE NEUT (AUTO) 2.8 10^3/uL (1.7-8.2); BASOPHILS % (AUTO) 0.4 % (0-2); EOSINOPHILS % (AUTO) 1.7 % (0-6); HEMATOCRIT 41.3 % (36.0-47.0); LYMPHOCYTES % (AUTO) 38.5 % (13-45); MEAN CORPUSCULAR HEMOGLOBIN 33.5 pg (27.0-33.4); MEAN CORPUSCULAR HGB CONC 34.1 g/dL (32.0-36.0); MEAN CORPUSCULAR VOLUME 98 fl (80-97); MONOCYTES % (AUTO) 5.2 % (3-13); PLATELET COUNT 253 10^3/uL (150-450); RED BLOOD COUNT 4.21 10^6/uL (3.72-5.28); SEGMENTED NEUTROPHILS % (AUTO) 54.2 % (42-78); WHITE BLOOD COUNT 5.2 10^3/uL (4.0-10.5)
[2019-04-08 15:46] LABS: ALBUMIN 4.5 g/dL (3.5-5.0); ALKALINE PHOSPHATASE 56 U/L (38-126); ANION GAP 12 (5-19); ASPARTATE AMINO TRANSFERASE 21 U/L (14-36); BILIRUBIN,DIRECT 0.1 mg/dL (0.0-0.4); BILIRUBIN,TOTAL 0.3 mg/dL (0.2-1.3); BLOOD UREA NITROGEN 8 mg/dL (7-20); CALCIUM 9.4 mg/dL (8.4-10.2); CARBON DIOXIDE 24 mmol/L (22-30); CHLORIDE 106 mmol/L (98-107); GLUCOSE 70 mg/dL (75-110); POTASSIUM 3.5 mmol/L (3.6-5.0); TOTAL PROTEIN 7.5 g/dL (6.3-8.2)
[2019-04-08] MEDS ORDERED: MORPHINE SULFATE 10 MG/ML INJ IV ONE ×2 (15:50→16:29)
[2019-04-08] MEDS ORDERED: DEXTROSE 5%-NORMAL SALINE 1,000 ML IV ONE (16:00)
--- NOTE | 2019-04-08 16:03 | ER Document Report ---
ED Headache - General Chief Complaint: Headache Stated Complaint: HEADACHE Time Seen by Provider: 04/08/19 14:56 Primary Care Provider: JUDY ZEE DO [Primary Care Provider] - Follow up as needed Mode of Arrival: Ambulatory Information source: Patient Notes: Patient presents complaining of migraine headache that started yesterday around 9:30 AM. Patient does report light sensitivity and nausea with vomiting x4 episodes. Patient denies any diarrhea. Patient denies any fever or head injury. Patient complains of pain to the left side of head. Patient states headache is typical flareups that she has had in the past. Patient states that she is on ajovy to treat her migraines and is not due for repeat injection until April 18. TRAVEL OUTSIDE OF THE [place] IN LAST 30 DAYS: No - HPI Patient complains to provider of: "Migraine" Patient reports: Frequent migraines Onset: Yesterday Onset was: Gradual Timing: Still present Quality of pain: Sharp, Throbbing Pain Level: 5 Associated symptoms: Nausea/vomiting, Photophobia. denies: Speech problems, Stiff neck Exacerbated by: Light, Noise Similar symptoms previously: Yes Recently seen / treated by doctor: No - Related Data Allergies/Adverse Reactions: prochlorperazine edisylate [From Compazine] Allergy (Severe, Verified 04/08/19 14:51) Anaphylaxis prochlorperazine maleate [From Compazine] Allergy (Severe, Verified 04/08/19 14:51) Anaphylaxis metoclopramide HCl [From Reglan] Allergy (Verified 04/08/19 14:51) rizatriptan benzoate [From Maxalt] Allergy (Verified 04/08/19 14:51) sumatriptan [From Imitrex] Allergy (Verified 04/08/19 14:51) sumatriptan succinate [From Imitrex] Allergy (Verified 04/08/19 14:51) eletriptan HBr [From Relpax] Adverse Reaction (Verified 04/08/19 14:51) triptins Allergy (Severe, Uncoded 04/08/19 14:51) Anaphylaxis Past Medical History - General Information source: Patient - Social History Smoking Status: Current Every Day Smoker Chew tobacco use (# tins/day): No Frequency of alcohol use: None Drug Abuse: None Occupation: None Family History: Reviewed & Not Pertinent Patient has suicidal ideation: No Patient has homicidal ideation: No Neurological Medical History: Reports: Hx Migraine, Hx Seizures Renal/ Medical History: Denies: Hx Peritoneal Dialysis Psychiatric Medical History: Reports: Hx Anxiety, Hx Depression Past Surgical History: Reports: Hx Gynecologic Surgery - ablation - Immunizations Immunizations up to date: Yes Hx Diphtheria, Pertussis, Tetanus Vaccination: Yes Review of Systems - Review of Systems Constitutional: No symptoms reported. denies: Fever, Recent illness EENT: No symptoms reported Cardiovascular: No symptoms reported Respiratory: No symptoms reported. denies: Cough, Short of breath Gastrointestinal: Nausea, Vomiting. denies: Abdominal pain Genitourinary: No symptoms reported Female Genitourinary: No symptoms reported Musculoskeletal: No symptoms reported. denies: Back pain, Neck pain Skin: No symptoms reported Hematologic/Lymphatic: No symptoms reported Neurological/Psychological: Headaches. denies: Confusion Physical Exam - Vital signs Vitals: Temp Pulse Resp BP Pulse Ox 98 F 75 18 118/66 100 04/08/19 14:44 04/08/19 14:44 04/08/19 14:44 04/08/19 14:44 04/08/19 14:44 - General General appearance: Alert In distress: None - HEENT Head: Normocephalic, Atraumatic Eyes: Normal Conjunctiva: Normal Extraocular movements intact: Yes Eyelashes: Normal Pupils: PERRL Ears: Normal External canal: Normal Tympanic membrane: Normal Nasal: Normal Mouth/Lips: Normal Mucous membranes: Normal Pharynx: Normal. No: Erythema, Exudate, Tonsillar hypertrophy Neck: Normal, Supple. No: Brudzinski, Lymphadenopathy, Meningismus - Respiratory Respiratory status: No respiratory distress Chest status: Nontender Breath sounds: Normal. No: Rales, Rhonchi, Stridor, Wheezing Chest palpation: Normal - Cardiovascular Rhythm: Regular Heart sounds: S1 appreciated, S2 appreciated Murmur: No - Abdominal Inspection: Normal Distension: No distension Bowel sounds: Normal Tenderness: Nontender - Back Back: Normal, Nontender. No: Vertebra tenderness - Extremities General upper extremity: Normal inspection, Normal strength General lower extremity: Normal inspection, Normal strength - Neurological Neuro grossly intact: Yes Cognition: Normal [place] Coma Scale Eye Opening: Spontaneous Ana Coma Scale Verbal: Oriented [place] Coma Scale Motor: Obeys Commands [place] Coma Scale Total: 15 - Psychological Associated symptoms: Normal affect, Normal mood - Skin Skin Temperature: Warm Skin Moisture: Dry Skin Color: Normal Course - Re-evaluation Re-evalutation: 04/08/19 16:30 Patient states that she feels as though she is having an aura and that her headache pain is starting to come back. Patient states that the fear of the pain is making her anxious as well. Additional medications ordered at this time. 04/08/19 17:31 Patient reports that headache pain is resolved at this time. Patient is able to tolerate crackers and juice without emesis. The patient presents with headache without signs of BLOCK [employer]ER bleed, stroke, infection, or other serious etiology. The patient is neurologically intact. Given the extremely low risk of these diagnoses further testing and evaluation for these possibilities does not appear to be indicated at this time. The patient has been instructed to return if the symptoms worsen or change in any way. - Vital Signs Vital signs: Temp Pulse Resp BP Pulse Ox 97.8 F 62 16 100/45 L 100 04/08/19 17:45 04/08/19 17:45 04/08/19 17:45 04/08/19 17:45 04/08/19 17:45 - Laboratory Result Diagrams: 04/08/19 15:05 04/08/19 15:05 Laboratory results interpreted by me: 04/08/19 04/08/19 15:05 15:05 MCV 98 H MCH 33.5 H Potassium 3.5 L Glucose 70 L 04/08/19 17:31 Labs- Entire Visit 04/08/19 04/08/19 04/08/19 15:05 15:05 15:05 WBC 5.2 RBC 4.21 Hgb 14.1 Hct 41.3 MCV 98 H MCH 33.5 H MCHC 34.1 RDW 13.0 Plt Count 253 Lymph % (Auto) 38.5 [place] % (Auto) 5.2 Eos % (Auto) 1.7 Baso % (Auto) 0.4 Absolute Neuts (auto) 2.8 Absolute Lymphs (auto) 2.0 Absolute Monos (auto) 0.3 Absolute Eos (auto) 0.1 Absolute Basos (auto) 0.0 Seg Neutrophils % 54.2 Sodium 142.1 Potassium 3.5 L Chloride 106 Carbon Dioxide 24 Anion Gap 12 BUN 8 Creatinine 0.80 Est GFR ( Amer) > 60 Est GFR (MDRD) Non-Af > 60 Glucose 70 L Calcium 9.4 Total Bilirubin 0.3 Direct Bilirubin 0.1 Neonat Total Bilirubin Not Reportable Neonat Direct Bilirubin Not Reportable Neonat Indirect Bili Not Reportable AST 21 ALT 14 Alkaline Phosphatase 56 Total Protein 7.5 Albumin 4.5 Serum HCG, Qual NEGATIVE Urine Color Urine Appearance Urine pH Ur Specific [place] Urine Protein Urine Glucose (UA) Urine Ketones Urine Blood Urine Nitrite Urine Bilirubin Urine Urobilinogen Ur Leukocyte Esterase Urine WBC (Auto) Urine RBC (Auto) Squamous Epi Cells Auto Urine Mucus (Auto) Urine Ascorbic Acid 04/08/19 15:05 WBC RBC Hgb Hct MCV MCH MCHC RDW Plt Count Lymph % (Auto) [place] % (Auto) Eos % (Auto) Baso % (Auto) Absolute Neuts (auto) Absolute Lymphs (auto) Absolute Monos (auto) Absolute Eos (auto) Absolute Basos (auto) Seg Neutrophils % Sodium Potassium Chloride Carbon Dioxide Anion Gap BUN Creatinine Est GFR ( Amer) Est GFR (MDRD) Non-Af Glucose Calcium Total Bilirubin Direct Bilirubin Neonat Total Bilirubin Neonat Direct Bilirubin Neonat Indirect Bili AST ALT Alkaline Phosphatase Total Protein Albumin Serum HCG, Qual Urine Color YELLOW Urine Appearance CLEAR Urine pH 6.0 Ur Specific [place] 1.014 Urine Protein NEGATIVE Urine Glucose (UA) NEGATIVE Urine Ketones NEGATIVE Urine Blood NEGATIVE Urine Nitrite NEGATIVE Urine Bilirubin NEGATIVE Urine Urobilinogen NEGATIVE Ur Leukocyte Esterase NEGATIVE Urine WBC (Auto) 0 Urine RBC (Auto) 1 Squamous Epi Cells Auto 1 Urine Mucus (Auto) RARE Urine Ascorbic Acid NEGATIVE Discharge - Discharge Clinical Impression: Headache Qualifiers: Headache type: unspecified Headache chronicity pattern: unspecified pattern Intractability: not intractable Qualified Code(s): R51 - Headache Condition: Stable Disposition: HOME, SELF-CARE Instructions: Antinausea Medication ([facility]), Headache ([facility]), Pain Medication Injection ([facility]) Additional Instructions: Return immediately for any new or worsening symptoms Followup with your primary care provider, call tomorrow to make a followup appointment Follow-up with your neurologist for recheck, call tomorrow for an appointment Referrals: JUDY ZEE, DO [Primary Care Provider] - Follow up as needed
[2019-04-08] MEDS ORDERED: DEXAMETHASONE SOD PHOS INJ 10 MG/1 ML VIAL IV ONE (16:29)
[2019-04-08] MEDS ORDERED: DIPHENHYDRAMINE HCL 50 MG/ML VIAL IV ONE (16:29)
[2019-04-08 17:45] VITALS: BP 100/45
== END 2019-04-08 17:51 | disposition home or self-care (01) ==
LOC: ER 14:37
DX: G43.909 Migraine, unspecified, not intractable, without status migrainosus (principal); Z79.899 Other long term (current) drug therapy; H53.149 Visual discomfort, unspecified; R11.2 Nausea with vomiting, unspecified; F17.200 Nicotine dependence, unspecified, uncomplicated; Z88.6 Allergy status to analgesic agent; Z87.892 Personal history of anaphylaxis; Z88.8 Allergy status to other drugs, medicaments and biological substances
CPT/HCPCS: 36415; 84703; 85025; 80053; 81001; J1200; J1885; J2270; J2550; J7042; J7030; J1100; 96361; 96374; 96375; 96376; 99284

== ENCOUNTER 2019-07-16 10:06 | Emergency (ER) | payer OTHER ==
[2019-07-16] MEDS ORDERED: DEXAMETHASONE SOD PHOS INJ 10 MG/1 ML VIAL IV ONE (12:05)
[2019-07-16] MEDS ORDERED: DIPHENHYDRAMINE HCL 50 MG/ML VIAL IV ONE (12:05)
[2019-07-16] MEDS ORDERED: KETOROLAC TROMETHAMINE INJ/PF 30 MG/1 ML SDV IV ONE (12:05)
--- NOTE | 2019-07-16 12:06 | ER Document Report ---
ED Medical Screen (RME) - General Chief Complaint: Headache Stated Complaint: HEADACHE Time Seen by Provider: 07/16/19 12:01 Primary Care Provider: JUDY ZEE DO [Primary Care Provider] - Follow up as needed Notes: HPI: 38-year-old female with longstanding history of migraine headaches presenting with a 3-day headache in the right oriental orthodox region typical of prior migraines. States she has had nausea vomiting no fever. Does report some photophobia. States she took Phenergan this morning around 7:30 AM for nausea. States she is waiting for medications by mail as she is starting a new regimen from her neurologist for the migraine prevention. I have greeted and performed a rapid initial assessment of this patient. A comprehensive ED assessment and evaluation of the patient, analysis of test results and completion of the medical decision making process will be conducted by additional ED providers PHYSICAL EXAMINATION: GENERAL: Well-appearing, well-nourished and in mild acute distress. HEAD: Atraumatic, normocephalic. EYES: sclera anicteric, conjunctiva are normal. Mild photophobia ENT: Moist mucous membranes. NECK: Normal range of motion LUNGS: Normal work of breathing HEART: 2+ radial pulses bilaterally ABD: limited by positioning for exam in triage. EXTREMITIES: no pitting or edema. No cyanosis. NEUROLOGICAL: No focal neurological deficits. Moves all extremities spontaneously and on command. PSYCH: Normal mood, normal affect. SKIN: Warm, Dry, normal turgor, no rashes or lesions noted. TRAVEL OUTSIDE OF THE [place] IN LAST 30 DAYS: No - Related Data Allergies/Adverse Reactions: prochlorperazine edisylate [From Compazine] Allergy (Severe, Verified 04/08/19 14:51) Anaphylaxis prochlorperazine maleate [From Compazine] Allergy (Severe, Verified 04/08/19 14:51) Anaphylaxis metoclopramide HCl [From Reglan] Allergy (Verified 04/08/19 14:51) rizatriptan benzoate [From Maxalt] Allergy (Verified 04/08/19 14:51) sumatriptan [From Imitrex] Allergy (Verified 04/08/19 14:51) sumatriptan succinate [From Imitrex] Allergy (Verified 04/08/19 14:51) eletriptan HBr [From Relpax] Adverse Reaction (Verified 04/08/19 14:51) triptins Allergy (Severe, Uncoded 04/08/19 14:51) Anaphylaxis Past Medical History - Social History Family history: DM, Hypertension, Malignancy Neurological Medical History: Reports: Hx Migraine, Hx Seizures Renal/ Medical History: Denies: Hx Peritoneal Dialysis Psychiatric Medical History: Reports: Hx Anxiety, Hx Depression Past Surgical History: Reports: Hx Gynecologic Surgery - ablation - Immunizations Immunizations up to date: Yes Hx Diphtheria, Pertussis, Tetanus Vaccination: Yes Physical Exam - Vital signs Vitals: Temp Pulse Resp BP Pulse Ox 98.0 F 98 20 117/76 99 07/16/19 10:13 07/16/19 10:13 07/16/19 10:13 07/16/19 10:13 07/16/19 10:13 Course - Vital Signs Vital signs: Temp Pulse Resp BP Pulse Ox 98.0 F 98 20 117/76 99 07/16/19 10:13 07/16/19 10:13 07/16/19 10:13 07/16/19 10:13 07/16/19 10:13 Doctor's Discharge - Discharge Referrals: JUDY ZEE, [Primary Care Provider] - Follow up as needed
[2019-07-16] MEDS ORDERED: NORMAL SALINE 1000 ML 1,000 ML IV ONE (16:22)
[2019-07-16] MEDS ORDERED: METHOCARBAMOL INJ/PF 1000 MG/10 ML SDV IV ONE (16:22)
--- NOTE | 2019-07-16 16:41 | ER Document Report ---
ED Headache - General Chief Complaint: Headache Stated Complaint: HEADACHE Time Seen by Provider: 07/16/19 12:01 Primary Care Provider: JUDY ZEE DO [Primary Care Provider] - Follow up as needed Mode of Arrival: Ambulatory Information source: Patient, [facility] Records Notes: This 38-year-old female patient comes emergency room complaining of a right temporal headache for the past 3 days. She reported there was some nausea vomiting yesterday and again this morning. None since she took her Phenergan this morning. She has a long history of migraine headaches, gets a migraine 3-4 times per month and this is similar to her migraine pattern. She was recently switched from Dakota (she got Dakota 10 mg #60 prescribed on 05/01/2019). Her new medications include Reyvow and another medication that she cannot spell well enough for me to look up. She states the new medications are supposed to come in the mail but have not arrived yet. The patient reports that she thinks she might be allergic to Toradol but she is not sure. Reviewing the medical records I find that she had been given Toradol several times in the past. She does state that the last time she was here they gave her some medicine that worked really well but she does not know what it was. Reviewing the records shows that she received morphine 5 mg IV, and then a second dose of morphine 2 mg IV on that visit. TRAVEL OUTSIDE OF THE [place] IN LAST 30 DAYS: No - Related Data Allergies/Adverse Reactions: prochlorperazine edisylate [From Compazine] Allergy (Severe, Verified 04/08/19 14:51) Anaphylaxis prochlorperazine maleate [From Compazine] Allergy (Severe, Verified 04/08/19 14:51) Anaphylaxis ketorolac [From Toradol] Allergy (Verified 07/16/19 12:39) metoclopramide HCl [From Reglan] Allergy (Verified 04/08/19 14:51) rizatriptan benzoate [From Maxalt] Allergy (Verified 04/08/19 14:51) sumatriptan [From Imitrex] Allergy (Verified 04/08/19 14:51) sumatriptan succinate [From Imitrex] Allergy (Verified 04/08/19 14:51) eletriptan HBr [From Relpax] Adverse Reaction (Verified 04/08/19 14:51) triptins Allergy (Severe, Uncoded 04/08/19 14:51) Anaphylaxis Past Medical History - General Information source: Patient, [facility] Records - Social History Smoking Status: Current Every Day Smoker Cigarette use (# per day): Yes - 1/2 PPD Chew tobacco use (# tins/day): No Smoking Education Provided: No Frequency of alcohol use: None Drug Abuse: None Occupation: Unemployed Lives with: Spouse/Significant other Family History: Reviewed & Not Pertinent Patient has suicidal ideation: No Patient has homicidal ideation: No Neurological Medical History: Reports: Hx Migraine, Hx Seizures Psychiatric Medical History: Reports: Hx Anxiety, Hx Depression Past Surgical History: Reports: Hx Gynecologic Surgery - ablation - Immunizations Immunizations up to date: Yes Hx Diphtheria, Pertussis, Tetanus Vaccination: Yes Review of Systems - Review of Systems Constitutional: No symptoms reported EENT: No symptoms reported Cardiovascular: No symptoms reported Respiratory: No symptoms reported Gastrointestinal: No symptoms reported Genitourinary: No symptoms reported Female Genitourinary: No symptoms reported Musculoskeletal: No symptoms reported Hematologic/Lymphatic: No symptoms reported Neurological/Psychological: Depression, Headaches Physical Exam - Vital signs Vitals: Temp Pulse Resp BP Pulse Ox 98.0 F 98 20 117/76 99 07/16/19 10:13 07/16/19 10:13 07/16/19 10:13 07/16/19 10:13 07/16/19 10:13 Interpretation: Normal - General General appearance: Alert In distress: Mild Notes: Wearing sunglasses due to light sensitivity - HEENT Head: Normocephalic, Atraumatic, Tenderness - Right temporal scalp muscles tender to palpate Eyes: Normal Pupils: PERRL Neck: Supple - Right posterior cervical muscles very tender to palpate - Respiratory Respiratory status: No respiratory distress Breath sounds: Normal - Cardiovascular Rhythm: Regular Heart sounds: Normal auscultation Murmur: No - Abdominal Inspection: Normal - Back Back: Normal - Extremities General upper extremity: Normal inspection General lower extremity: Normal inspection - Neurological Neuro grossly intact: Yes - Psychological Associated symptoms: Normal affect, Normal mood Course - Re-evaluation Re-evalutation: 07/16/19 18:59 Patient reports that her neck muscles are feeling better since the Toradol and Robaxin. She states that her right temporal headache is still bad. - Vital Signs Vital signs: Temp Pulse Resp BP Pulse Ox 98.0 F 98 20 117/76 99 07/16/19 10:13 07/16/19 10:13 07/16/19 10:13 07/16/19 10:13 07/16/19 10:13 Discharge - Discharge Clinical Impression: Headache Qualifiers: Headache type: tension-type Headache chronicity pattern: unspecified pattern Intractability: not intractable Qualified Code(s): G44.209 - Tension-type headache, unspecified, not intractable Condition: Stable Disposition: HOME, SELF-CARE Additional Instructions: Headache: The physician does not feel that the headache you are experiencing has a serious underlying cause. Most headaches are due to emotional stress, with resultant muscle tension (tension headache). Occasionally, headaches are secondary to changes in the blood vessels of the scalp (vascular headache and migraine headache). The treatment of headaches varies with the severity and cause of the pain. Not all headaches need pain shots. In fact, there is evidence that using narcotics for headaches may make them worse in the long run. The physician will determine the therapy that's in your best interest. If you develop a fever, if the headache is different from any you've previously experienced, or if the headache progressively worsens, then call your physician at once or go to the emergency room. Your evaluation today suggest that you are having a muscle tension type headache along with your migraine headache. Many people find that moist heat or ice packs to the painful areas is helpful. You should continue your regular medications at home. Take Tylenol and ibuprofen to help with the headaches. Follow-up with your primary care provider or your neurology provider this week if the headaches continue and you do not get your medications in the mail. RETURN TO THE EMERGENCY ROOM IF ANY NEW OR WORSENING SYMPTOMS. Referrals: JUDY ZEE, [Primary Care Provider] - Follow up as needed
[2019-07-16] MEDS ORDERED: MORPHINE SULFATE 10 MG/ML INJ IV ONE (18:59)
[2019-07-16 20:17] VITALS: BP 102/64
== END 2019-07-16 20:23 | disposition home or self-care (01) ==
LOC: ER 10:06
DX: G44.209 Tension-type headache, unspecified, not intractable (principal); R11.2 Nausea with vomiting, unspecified; Z79.899 Other long term (current) drug therapy; Z88.8 Allergy status to other drugs, medicaments and biological substances; F17.210 Nicotine dependence, cigarettes, uncomplicated
CPT/HCPCS: 99284; 96375; 96365; J1200; J2800; J2270; J7030; J1100

== ENCOUNTER 2019-07-17 19:51 | Emergency (ER) | payer OTHER ==
[2019-07-17] MEDS ORDERED: MORPHINE SULFATE 10 MG/ML INJ IV ONE (20:26)
[2019-07-17] MEDS ORDERED: KETOROLAC TROMETHAMINE INJ/PF 30 MG/1 ML SDV IV ONE (20:26)
[2019-07-17] MEDS ORDERED: DIPHENHYDRAMINE HCL 50 MG/ML VIAL IV ONE (20:26)
[2019-07-17] MEDS ORDERED: NORMAL SALINE 1000 ML 1,000 ML IV ONE (20:27)
--- NOTE | 2019-07-17 20:30 | ER Document Report ---
ED Medical Screen (RME) - General Chief Complaint: Headache Stated Complaint: HEADACHE Time Seen by Provider: 07/17/19 20:22 Primary Care Provider: JUDY ZEE DO [Primary Care Provider] - Follow up as needed TRAVEL OUTSIDE OF THE [place] IN LAST 30 DAYS: No - HPI Notes: 07/17/19 20:28 Patient is a 38-year-old female with a history of migraines who presents complaining of migraine headache that recurred again this morning after being seen yesterday. Patient states that she has migraines fairly often and does have a neurologist. Patient states that this is not the worst headache of her life and did not reach maximal intensity at initial onset. No injury. Patient states that the pain does not radiate. She does have associated light sensitivity as well as nausea. Patient states that the symptoms are normal for her with these headaches. No recent illness. Pt does note some blurriness of vision. Denies any fever, head injury, neck pain, URI, sore throat, chest pain, palpitations, syncope, cough, shortness of breath, wheeze, dyspnea, abdominal pain, nausea/vomiting/diarrhea, urinary retention, dysuria, hematuria, loss of control of bowel or bladder, numbness/tingling, saddle anesthesia, muscle paralysis/weakness, or rash. I have treated and performed a rapid initial assessment of this patient. A comprehensive ED assessment and evaluation of the patient, analysis of test results and completion of medical decision making process will be conducted by additional ED providers. PHYSICAL EXAMINATION: GENERAL: Well-appearing, well-nourished and in no acute distress. A&Ox4. Answers questions appropriately. Eyes: No raccoon eyes, PERRLA, EOMI bilaterally. Neuro: NIH 0, GCS 15, cranial nerves grossly intact. - Related Data Allergies/Adverse Reactions: prochlorperazine edisylate [From Compazine] Allergy (Severe, Verified 04/08/19 14:51) Anaphylaxis prochlorperazine maleate [From Compazine] Allergy (Severe, Verified 04/08/19 14:51) Anaphylaxis ketorolac [From Toradol] Allergy (Verified 07/16/19 12:39) metoclopramide HCl [From Reglan] Allergy (Verified 04/08/19 14:51) rizatriptan benzoate [From Maxalt] Allergy (Verified 04/08/19 14:51) sumatriptan [From Imitrex] Allergy (Verified 04/08/19 14:51) sumatriptan succinate [From Imitrex] Allergy (Verified 04/08/19 14:51) eletriptan HBr [From Relpax] Adverse Reaction (Verified 04/08/19 14:51) triptins Allergy (Severe, Uncoded 04/08/19 14:51) Anaphylaxis Past Medical History - Social History Family history: DM, Hypertension, Malignancy Neurological Medical History: Reports: Hx Migraine, Hx Seizures Renal/ Medical History: Denies: Hx Peritoneal Dialysis Psychiatric Medical History: Reports: Hx Anxiety, Hx Depression Past Surgical History: Reports: Hx Gynecologic Surgery - ablation - Immunizations Immunizations up to date: Yes Hx Diphtheria, Pertussis, Tetanus Vaccination: Yes Physical Exam - Vital signs Vitals: Temp Pulse Resp BP Pulse Ox 98.1 F 88 16 100/70 100 07/17/19 20:03 07/17/19 20:03 07/17/19 20:03 07/17/19 20:03 07/17/19 20:03 Course - Vital Signs Vital signs: Temp Pulse Resp BP Pulse Ox 98.1 F 88 16 100/70 100 07/17/19 20:03 07/17/19 20:03 07/17/19 20:03 07/17/19 20:03 07/17/19 20:03 Doctor's Discharge - Discharge Referrals: JUDY ZEE DO [Primary Care Provider] - Follow up as needed
[2019-07-17] MEDS ORDERED: PROMETHAZINE HCL 25 MG TABLET PO ONE (21:37)
--- NOTE | 2019-07-17 22:26 | ER Document Report ---
ED Headache - General Chief Complaint: Headache Stated Complaint: HEADACHE Time Seen by Provider: 07/17/19 20:22 Primary Care Provider: JUDY ZEE DO [NO LOCAL MD] - Follow up tomorrow Mode of Arrival: Wheelchair Information source: Patient Notes: 38-year-old female presented to ED for complaint of headache. She states she has a long history of headaches and she has been to the ER multiple times including yesterday for this headache. She states she went to her neurologist recently and they ordered some medications that needed a prior authorization and they sent it to a mail order pharmacy. She states that she called the pharmacy and they just got the prescription and they will need to send the back to her I have informed the patient that she needs to speak with the pharmacy her insurance and her doctor and see if she can get some of the medication at a local pharmacy until she can get for the prescription from the mail order. She states this is not the worst headache she is ever had. She was seen in triage she was treated with Benadryl 50 mg morphine 4 mg and Toradol 30 mg as well as a liter of fluids. When she came to the room she states she was still nauseated and she did get Phenergan 25 p.o. After her treatment was completed which was soon after I saw her she states the headache was starting to get better. I did let the IV fluids complete. TRAVEL OUTSIDE OF THE [place] IN LAST 30 DAYS: No - HPI Patient complains to provider of: Headache, "Migraine" Patient reports: Frequent migraines, Hx chronic headaches Onset: This morning - She also had a headache yesterday. Onset was: Gradual Timing: Better - States headache was much better by the time I saw her Quality of pain: Throbbing Severity: Mild Pain Level: 3 Associated symptoms: Double/blurred vision, Lightheaded, Nausea/vomiting Exacerbated by: Light, Noise, Movement Similar symptoms previously: Yes Recently seen / treated by doctor: Yes - Related Data Allergies/Adverse Reactions: prochlorperazine edisylate [From Compazine] Allergy (Severe, Verified 04/08/19 14:51) Anaphylaxis prochlorperazine maleate [From Compazine] Allergy (Severe, Verified 04/08/19 14:51) Anaphylaxis ketorolac [From Toradol] Allergy (Verified 07/16/19 12:39) metoclopramide HCl [From Reglan] Allergy (Verified 04/08/19 14:51) rizatriptan benzoate [From Maxalt] Allergy (Verified 04/08/19 14:51) sumatriptan [From Imitrex] Allergy (Verified 04/08/19 14:51) sumatriptan succinate [From Imitrex] Allergy (Verified 04/08/19 14:51) eletriptan HBr [From Relpax] Adverse Reaction (Verified 04/08/19 14:51) triptins Allergy (Severe, Uncoded 04/08/19 14:51) Anaphylaxis Home Medications: TRAZODONE, LEXAPRO, TROKENDI XR Past Medical History - General Information source: Patient - Social History Smoking Status: Current Every Day Smoker Cigarette use (# per day): Yes - 5 cigarettes a day Chew tobacco use (# tins/day): No Smoking Education Provided: Yes - 4 minutes Frequency of alcohol use: None Drug Abuse: None Lives with: Family Family History: Reviewed & Not Pertinent Patient has suicidal ideation: No Patient has homicidal ideation: No - Past Medical History Cardiac Medical History: Reports: None Pulmonary Medical History: Reports: None EENT Medical History: Reports: None Neurological Medical History: Reports: Hx Migraine, Hx Seizures Endocrine Medical History: Reports: None Renal/ Medical History: Reports: None Malignancy Medical History: Reports: None GI Medical History: Reports: None Musculoskeletal Medical History: Reports None Skin Medical History: Reports None Psychiatric Medical History: Reports: Hx Anxiety, Hx Depression Traumatic Medical History: Reports: None Infectious Medical History: Reports: None Past Surgical History: Reports: Hx Gynecologic Surgery - ablation - Immunizations Immunizations up to date: Yes Hx Diphtheria, Pertussis, Tetanus Vaccination: Yes Review of Systems - Review of Systems Constitutional: No symptoms reported EENT: Blurred vision Cardiovascular: No symptoms reported, Lightheaded Respiratory: No symptoms reported Gastrointestinal: No symptoms reported Genitourinary: No symptoms reported Female Genitourinary: No symptoms reported Musculoskeletal: No symptoms reported Skin: No symptoms reported Hematologic/Lymphatic: No symptoms reported Neurological/Psychological: No symptoms reported -: Yes All other systems reviewed and negative Physical Exam - Vital signs Vitals: Temp Pulse Resp BP Pulse Ox 98.1 F 88 16 100/70 100 07/17/19 20:03 07/17/19 20:03 07/17/19 20:03 07/17/19 20:03 07/17/19 20:03 Interpretation: Normal - General General appearance: Appears well, Alert - HEENT Head: Normocephalic, Atraumatic Eyes: Normal Pupils: PERRL - Respiratory Respiratory status: No respiratory distress Chest status: Nontender Breath sounds: Normal Chest palpation: Normal - Cardiovascular Rhythm: Regular Heart sounds: Normal auscultation Murmur: No - Abdominal Inspection: Normal Distension: No distension Bowel sounds: Normal Tenderness: Nontender Organomegaly: No organomegaly - Back Back: Normal, Nontender - Extremities General upper extremity: Normal inspection, Nontender, Normal color, Normal ROM, Normal temperature General lower extremity: Normal inspection, Nontender, Normal color, Normal ROM, Normal temperature, Normal weight bearing. No: Brenden's sign - Neurological Neuro grossly intact: Yes Cognition: Normal Orientation: AAOx4 Ana Coma Scale Eye Opening: Spontaneous Ana Coma Scale Verbal: Oriented Hunter Coma Scale Motor: Obeys Commands Ana Coma Scale Total: 15 Speech: Normal Motor strength normal: LUE, RUE, LLE, RLE Sensory: Normal - Psychological Associated symptoms: Normal affect, Normal mood - Skin Skin Temperature: Warm Skin Moisture: Dry Skin Color: Normal Course - Re-evaluation Re-evalutation: 07/17/19 22:47 After performing a Medical Screening Examination, I estimate there is LOW risk for ACUTE GLAUCOMA, TEMPORAL ARTERITIS, MENINGITIS, INCRANIAL HEMORRHAGE, or ISCHEMIC STROKE thus I consider the discharge disposition reasonable. I have reevaluated this patient multiple times and no significant life threatening changes are noted. The patient and I have discussed the diagnosis and risks, and we agree with discharging home with close follow-up with the understanding that symptoms and presentations can change. We also discussed returning to the Emergency Department immediately if new or worsening symptoms occur. We have discussed the symptoms which are most concerning (e.g., changing or worsening symptoms, new numbness or weakness, vomiting, fever) that necessitate immediate return. - Vital Signs Vital signs: Temp Pulse Resp BP Pulse Ox 97.8 F 73 16 105/58 L 98 07/17/19 22:38 07/17/19 22:38 07/17/19 22:38 07/17/19 22:38 07/17/19 22:38 Discharge - Discharge Clinical Impression: Headache Qualifiers: Headache type: unspecified Headache chronicity pattern: unspecified pattern Intractability: not intractable Qualified Code(s): R51 - Headache Condition: Stable Disposition: HOME, SELF-CARE Additional Instructions: HEADACHE: The physician does not feel that the headache you are experiencing has a serious underlying cause. Most headaches are due to emotional stress, with resultant muscle tension (tension headache). Occasionally, headaches are secondary to changes in the blood vessels of the scalp (vascular headache and migraine headache). Sometimes, a headache is the first symptom of another developing illness, such as a viral infection. You have no evidence of stroke, bleeding, meningitis, or other serious cause of your headache. The treatment of headaches varies with the severity and cause of the pain. Not all headaches need pain shots. In fact, there is evidence that using narcotics for headaches may make them worse in the long run. The physician will determine the therapy that's in your best interest. If you develop a fever, if the headache is different from any you've previously experienced, or if the headache progressively worsens, then call your physician at once or go to the emergency room. USE OF DIPHENHYDRAMINE: Diphenhydramine (Benadryl) is an antihistamine and has been recommended to help treat your headache and to prevent side effects of other medications used to treat headaches. The medication can be repeated four times daily. Age Elixir (12.5 mg/tsp) 25 mg pill adult 1-2 tabs Antihistamines may cause drowsiness, especially with the first dose. Do not operate machinery or drive while under the effects of the medication. Do not combine the medication with alcohol, or with any other medication without talking to your doctor. ANTINAUSEA MEDICATION: You have been given a medication to suppress nausea and vomiting. This type of medication can be given as a shot, pill, or suppository. It will usually last for many hours. Pills and shots usually last six to eight hours, suppositories last about 12 hours. For the typical illness, only one or two doses of the medication may be necessary. Mild lightheadedness may occur. This type of medicine can cause drowsiness. Do not drive or operate dangerous machinery while under its influence. Do not mix with alcohol. See your doctor at once if you have muscle spasms or tightness, or uncontrollable motions (particularly of the neck, mouth, or jaw). Persistent vomiting or severe lightheadedness should also be evaluated by the physician. TORADOL INJECTION: You have been given an injection of ketorolac tromethamine (Toradol). This is an excellent, safe drug for pain control. It also has potent antiinflammatory action. You should have significant pain relief within about one hour. Toradol is not addicting and is non-sedating. It does not interfere with driving or work. Call or return if you develop itching, hives, shortness of breath, or rash. PAIN MEDICATION INJECTION: You have received an injection of a pain medication. You should experience significant pain relief within 45 minutes. This drug is a narcotic -- it will impair your judgement, slow your reaction time and make you sleepy (as well as relieve your pain). Narcotics also can cause nausea. You should not drive, work with machinery, or perform any task requiring mental alertness until all effects of the medication are gone -- six to eight hours. Do not take any alcohol, or sedatives, and do not take any other medication without checking with your physician. Intravenous (IV) Fluids As part of your care today, you received intravenous (IV) fluids. IV fluids are administered to patients who are dehydrated or to those who have certain chemical (electrolyte) abnormalities that need correcting. FOLLOW-UP CARE: If you have been referred to a physician for follow-up care, call the physicians office for an appointment as you were instructed or within the next two days. If you experience worsening or a significant change in your symptoms, notify the physician immediately or return to the Emergency Department at any time for re-evaluation. Referrals: JUDY ZEE DO [NO LOCAL MD] - Follow up tomorrow
[2019-07-17 22:39] VITALS: BP 105/58
== END 2019-07-17 22:38 | disposition home or self-care (01) ==
LOC: ER 19:51
DX: G43.909 Migraine, unspecified, not intractable, without status migrainosus (principal); R11.2 Nausea with vomiting, unspecified; H53.8 Other visual disturbances; H53.2 Diplopia; R42 Dizziness and giddiness; F41.9 Anxiety disorder, unspecified; F32.9 Major depressive disorder, single episode, unspecified; F17.210 Nicotine dependence, cigarettes, uncomplicated; Z71.6 Tobacco abuse counseling; Z79.899 Other long term (current) drug therapy; Z87.892 Personal history of anaphylaxis; Z88.8 Allergy status to other drugs, medicaments and biological substances; Z88.6 Allergy status to analgesic agent
CPT/HCPCS: 99406; 99283; 96361; 96374; 96375; J1200; J1885; J2270; J7030

== ENCOUNTER 2019-08-21 10:21 | Emergency (ER) | payer OTHER ==
[2019-08-21 10:26] VITALS: BP 116/80
--- NOTE | 2019-08-21 10:32 | ER Document Report ---
ED Medical Screen (RME) - General Chief Complaint: Headache Stated Complaint: HEADACHE Time Seen by Provider: 08/21/19 10:29 Primary Care Provider: IRAIDA AMIN PA [Primary Care Provider] - Follow up as needed Mode of Arrival: Ambulatory Notes: 8-year-old female presented to ED for complaint of migraine headache. She states she has had the headache for the last 5 days. She states she called her neurologist who works with Dr. Valerio's office and was told to come the emergency room for pain shot. She states she is allergic to Compazine and triptan's Reglan makes her weird. She states she usually takes hydrocodone or a pain shot. She is nauseated but no vomiting sensitive to light noise. Patient is alert oriented respirations regular nonlabored speaking in full sentences. I have greeted and performed a rapid initial assessment of this patient. A comprehensive ED assessment and evaluation of the patient, analysis of test results and completion of medical decision making process will be conducted by an additional ED providers. TRAVEL OUTSIDE OF THE [place] IN LAST 30 DAYS: No - Related Data Smoking: Cigarettes - 10 cigarettes a day Frequency of alcohol use: None Drug Abuse: None Allergies/Adverse Reactions: prochlorperazine edisylate [From Compazine] Allergy (Severe, Verified 08/21/19 10:25) Anaphylaxis prochlorperazine maleate [From Compazine] Allergy (Severe, Verified 08/21/19 10:25) Anaphylaxis ketorolac [From Toradol] Allergy (Verified 08/21/19 10:25) metoclopramide HCl [From Reglan] Allergy (Verified 08/21/19 10:25) rizatriptan benzoate [From Maxalt] Allergy (Verified 08/21/19 10:25) sumatriptan [From Imitrex] Allergy (Verified 08/21/19 10:25) sumatriptan succinate [From Imitrex] Allergy (Verified 08/21/19 10:25) eletriptan HBr [From Relpax] Adverse Reaction (Verified 08/21/19 10:25) triptins Allergy (Severe, Uncoded 08/21/19 10:25) Anaphylaxis Past Medical History - Social History Chew tobacco use (# tins/day): No Frequency of alcohol use: None Drug Abuse: None Family history: DM, Hypertension, Malignancy Neurological Medical History: Reports: Hx Migraine, Hx Seizures Renal/ Medical History: Denies: Hx Peritoneal Dialysis Psychiatric Medical History: Reports: Hx Anxiety, Hx Depression Past Surgical History: Reports: Hx Gynecologic Surgery - ablation - Immunizations Immunizations up to date: Yes Hx Diphtheria, Pertussis, Tetanus Vaccination: Yes Physical Exam - Vital signs Vitals: Temp Pulse Resp BP Pulse Ox 98.2 F 92 14 116/80 98 08/21/19 10:25 08/21/19 10:25 08/21/19 10:25 08/21/19 10:25 08/21/19 10:25 Course - Vital Signs Vital signs: Temp Pulse Resp BP Pulse Ox 98.2 F 92 14 116/80 98 08/21/19 10:25 08/21/19 10:25 08/21/19 10:25 08/21/19 10:25 08/21/19 10:25 Doctor's Discharge - Discharge Referrals: IRAIDA AMIN PA [Primary Care Provider] - Follow up as needed
--- NOTE | 2019-08-21 10:32 | ER Document Report ---
ED Headache - General Chief Complaint: Headache Stated Complaint: HEADACHE Time Seen by Provider: 08/21/19 10:29 Primary Care Provider: IRAIDA AMIN PA [Primary Care Provider] - Follow up as needed Mode of Arrival: Ambulatory Information source: Patient Notes: 38-year-old female presented to ED for complaint of migraine headache. She states she has had the headache for the last 5 days. She states she called her neurologist who works with Dr. Valerio's office and was told to come the emergency room for pain shot. She states she is allergic to Compazine and tri ptan's Reglan makes her weird. She states she usually takes hydrocodone or a pain shot. She is nauseated but no vomiting sensitive to light noise. Patient is alert oriented respirations regular nonlabored speaking in full sentences. I have greeted and performed a rapid initial assessment of this patient. A comprehensive ED assessment and evaluation of the patient, analysis of test results and completion of medical decision making process will be conducted by an additional ED providers. TRAVEL OUTSIDE OF THE [place] IN LAST 30 DAYS: No - Related Data Allergies/Adverse Reactions: prochlorperazine edisylate [From Compazine] Allergy (Severe, Verified 08/21/19 10:25) Anaphylaxis prochlorperazine maleate [From Compazine] Allergy (Severe, Verified 08/21/19 10:25) Anaphylaxis ketorolac [From Toradol] Allergy (Verified 08/21/19 10:25) metoclopramide HCl [From Reglan] Allergy (Verified 08/21/19 10:25) rizatriptan benzoate [From Maxalt] Allergy (Verified 08/21/19 10:25) sumatriptan [From Imitrex] Allergy (Verified 08/21/19 10:25) sumatriptan succinate [From Imitrex] Allergy (Verified 08/21/19 10:25) eletriptan HBr [From Relpax] Adverse Reaction (Verified 08/21/19 10:25) triptins Allergy (Severe, Uncoded 08/21/19 10:25) Anaphylaxis Past Medical History - Social History Smoking Status: Current Every Day Smoker Chew tobacco use (# tins/day): No Frequency of alcohol use: None Drug Abuse: None Family History: Reviewed & Not Pertinent Patient has suicidal ideation: No Patient has homicidal ideation: No Neurological Medical History: Reports: Hx Migraine, Hx Seizures Renal/ Medical History: Denies: Hx Peritoneal Dialysis Psychiatric Medical History: Reports: Hx Anxiety, Hx Depression Past Surgical History: Reports: Hx Gynecologic Surgery - ablation - Immunizations Immunizations up to date: Yes Hx Diphtheria, Pertussis, Tetanus Vaccination: Yes Physical Exam - Vital signs Vitals: Temp Pulse Resp BP Pulse Ox 98.2 F 92 14 116/80 98 08/21/19 10:25 08/21/19 10:25 08/21/19 10:25 08/21/19 10:25 08/21/19 10:25 Course - Vital Signs Vital signs: Temp Pulse Resp BP Pulse Ox 98.2 F 92 14 116/80 98 08/21/19 10:25 08/21/19 10:25 08/21/19 10:25 08/21/19 10:25 08/21/19 10:25 Discharge - Discharge Referrals: IRAIDA AMIN PA [Primary Care Provider] - Follow up as needed
[2019-08-21] MEDS ORDERED: PROMETHAZINE HCL 25 MG TABLET PO ONE (10:34)
[2019-08-21] MEDS ORDERED: DIPHENHYDRAMINE HCL 50 MG CAPSULE PO ONE (10:34)
[2019-08-21] MEDS ORDERED: KETOROLAC TROMETHAMINE 60 MG/2 ML SDV IM ONE (10:34)
[2019-08-21] MEDS ORDERED: DEXAMETHASONE SOD PHOSPHATE INJ 4 MG/1 ML VIAL IM ONE (10:34)
--- NOTE | 2019-08-21 10:37 | ER Document Report ---
ED General - General Chief Complaint: Headache Stated Complaint: HEADACHE Time Seen by Provider: 08/21/19 10:29 Primary Care Provider: IRAIDA AMIN PA [NO LOCAL MD] - Follow up as needed Mode of Arrival: Ambulatory Notes: 38F with chronic recurrent migraines sees neuro takes BC and new fancy pill p/w 5d DUMONT, holocephalic, severe, photophobia, nausea, no vomiting. o neck pain, fever, cough. No neuro defs. Similar to past migraines. H?o reciving narcs in ED, nult neg head imaging,. TRAVEL OUTSIDE OF THE [place] IN LAST 30 DAYS: No - Related Data Allergies/Adverse Reactions: prochlorperazine edisylate [From Compazine] Allergy (Severe, Verified 08/21/19 10:25) Anaphylaxis prochlorperazine maleate [From Compazine] Allergy (Severe, Verified 08/21/19 10:25) Anaphylaxis ketorolac [From Toradol] Allergy (Verified 08/21/19 10:25) metoclopramide HCl [From Reglan] Allergy (Verified 08/21/19 10:25) rizatriptan benzoate [From Maxalt] Allergy (Verified 08/21/19 10:25) sumatriptan [From Imitrex] Allergy (Verified 08/21/19 10:25) sumatriptan succinate [From Imitrex] Allergy (Verified 08/21/19 10:25) eletriptan HBr [From Relpax] Adverse Reaction (Verified 08/21/19 10:25) triptins Allergy (Severe, Uncoded 08/21/19 10:25) Anaphylaxis Past Medical History - Social History Smoking Status: Current Every Day Smoker Chew tobacco use (# tins/day): No Frequency of alcohol use: None Drug Abuse: None Family History: Reviewed & Not Pertinent Patient has suicidal ideation: No Patient has homicidal ideation: No Neurological Medical History: Reports: Hx Migraine, Hx Seizures Renal/ Medical History: Denies: Hx Peritoneal Dialysis Psychiatric Medical History: Reports: Hx Anxiety, Hx Depression Past Surgical History: Reports: Hx Gynecologic Surgery - ablation - Immunizations Immunizations up to date: Yes Hx Diphtheria, Pertussis, Tetanus Vaccination: Yes Review of Systems - Review of Systems Notes: REVIEW OF SYSTEMS GEN: Denies fever, chills, weight loss ENT: Denies sore throat, nasal discharge, ear pain EYES: Denies blurry vision, eye pain, discharge CV: Denies chest pain, palpitations, edema RESP: Denies cough, shortness of breath, wheezing GI: Denies abdominal pain, nausea, vomiting, diarrhea MSK: Denies joint pain/swelling, edema, SKIN: Denies rash, skin lesions LYMPH: Denies swollen glands/lymph nodes NEURO: See HPI PSYCH: Denies depression, suicidal or homicidal ideation PHYSICAL EXAMINATION General: No acute distress, well-nourished Head: Atraumatic, normocephalic ENT: Mouth normal, oropharynx moist, no exudates or tonsillar enlargement Eyes: Conjunctiva normal, pupils equal, lids normal Neck: No JVD, supple, no guarding CVS: Normal rate, regular rhythm, no murmurs Resp: No resp distress, equal and normal breath sounds bilaterally GI: Nondistended, soft, no tenderness to palpation, no rebound or guarding Ext: No deformities, no edema, normal range of motion in upper and lower ext Back: No CVA or midline TTP Skin: No rash, warm Lymphatic: No lymphadeopathy noted Neuro: Awake, alert. Face symmetric. GCS 15. Normal gait normal strength normal speech. Physical Exam - Vital signs Vitals: Temp Pulse Resp BP Pulse Ox 98.2 F 92 14 116/80 98 08/21/19 10:08/21/19 10:08/21/19 10:08/21/19 10:08/21/19 10:25 Course - Re-evaluation Re-evalutation: 08/21/19 10:44 Chronic recurrent igraines, similar features, no red flags, neck supple Doubt need for imaging, LP, etc Not vomiting IM/PO meds/cocktail DC when feeling better Ambulates speaks and neuro nl - Vital Signs Vital signs: Temp Pulse Resp BP Pulse Ox 98.2 F 92 14 116/80 98 08/21/19 10:08/21/19 10:25 08/21/19 10:25 08/21/19 10:08/21/19 10:25 Discharge - Discharge Clinical Impression: Migraines Qualifiers: Migraine type: other Status migrainosus presence: without status migrainosus Intractability: not intractable Qualified Code(s): G43.809 - Other migraine, not intractable, without status migrainosus Condition: Good Disposition: HOME, SELF-CARE Instructions: Headache ([facility]) Additional Instructions: call your neurologist to change/escalate your migraines medication TODAY Referrals: IRAIDA AMIN PA [NO LOCAL MD] - Follow up as needed
== END 2019-08-21 11:04 | disposition home or self-care (01) ==
LOC: ER 10:21
DX: G43.909 Migraine, unspecified, not intractable, without status migrainosus (principal); H53.149 Visual discomfort, unspecified; R11.0 Nausea; Z87.892 Personal history of anaphylaxis; Z88.8 Allergy status to other drugs, medicaments and biological substances; Z88.6 Allergy status to analgesic agent; F17.200 Nicotine dependence, unspecified, uncomplicated
CPT/HCPCS: 99283; 96372; J1100; J1885